=== PATIENT | female | born 1945 | race American Indian/Alaskan Native ===

== ENCOUNTER 2017-08-07 09:06 | Outpatient (CLI) | payer MEDICARE ==
--- NOTE | 2017-08-07 09:46 | XRay Report ---
Right hip 2 views: History: Arthritis right hip. Findings: There is total hip replacement noted. Acetabular and femoral component is anatomic in alignment. No fracture dislocation or soft tissue calcification. Impression: Stable right hip arthroplasty.
== END 2017-08-07 09:07 | disposition home or self-care (01) ==
LOC: SPVIMAG 09:06
PROVIDERS: ATTEND Orthopaedic Surgery Sports Medicine
DX: M25.551 Pain in right hip (principal); Z96.641 Presence of right artificial hip joint